=== PATIENT | male | born 1985 | race Caucasian/White ===

== ENCOUNTER 2022-02-08 17:37 | Emergency (ER) | payer OTHER ==
[2022-02-08 19:02] LABS: ESTIMATED GFR 99 mL/min (>60)
[2022-02-08] MEDS: Sodium Chloride 0.9% 10 ML Syringe FLUSH PRN ×2 (20:00→20:09)
[2022-02-08] MEDS ORDERED: Iopamidol 755 Mg/ML 100 ML Bottle IVPUSH ONE (20:08)
[2022-02-08] MEDS ORDERED: Sodium Chloride 0.9% 100 ML IV SCH (20:15)
== END 2022-02-08 20:47 ==
LOC: JD.ED 17:37
DX: S06.30AA Unspecified focal traumatic brain injury with loss of consciousness status unknown, initial encounter (principal); S12.600A Unspecified displaced fracture of seventh cervical vertebra, initial encounter for closed fracture; R79.1 Abnormal coagulation profile; Z88.1 Allergy status to other antibiotic agents; W11.XXXA Fall on and from ladder, initial encounter; Y92.009 Unspecified place in unspecified non-institutional (private) residence as the place of occurrence of the external cause
CPT/HCPCS: 36415; 70450; 71045; 71275; 72125; 80053; 82947; 83735; 83880; 84484; 85025; 85379; 85610; 85730; 93005; 99285; J3490; Q9967